=== PATIENT | female | born 2005 | race Hispanic/Latino ===

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

== ENCOUNTER 2025-02-18 23:55 | Emergency (ER) | payer SELFPAY ==
[~2025-02-18] VITALS: Ht 157.5 cm; Wt 56.7 kg
[~2025-02-18 23:55] MED LIST changes: +PRED20TA3 PO
--- NOTE | 2025-02-18 23:58 | NUR ---
UA CUP PROVIDED
--- NOTE | 2025-02-19 00:02 | NUR ---
PT CARE ASSUMED AT THIS TIME
[2025-02-19] MEDS: FAMOTIDINE 20MG VIAL IV ONE (00:21)
--- NOTE | 2025-02-19 01:26 | ERN ---
General Chief Complaint: Allergic Reaction Stated Complaint: RASH/ HIVES Time Seen by MD: 23:57 Source: patient History of Present Illness Initial Comments 19-year-old female who noticed some itching on her right antecubital fossa and she scratched it a little bit and then a short time later noted that she ended up with a hives reaction over her entire body. She is not allergic to any medications that she knows of. She has not started any medications she has not changed her perfumes or laundry detergent or anything in her environment. She has no new pets. She has no difficulty breathing no nausea or vomiting. Timing/Duration: 4-6 hours Allergies: Coded Allergies: No Known Allergies (Unverified Allergy, Unknown, 05/24/19) Home Meds Active Scripts Prednisone (Prednisone) 20 Mg Tablet, 1 TAB PO AD for 6 Days, #14 TAB 0 Refills TAKE 1 TAB BY MOUTH THREE TIMES PER DAY X3 DAYS, THEN TAKE 1 TAB BY MOUTH TWICE A DAY X2 DAYS, THEN TAKE 1 TAB BY MOUTH ONCE A DAY X1 DAY. Prov:ÁNGEL GUADARRAMA MD 11/05/24 Ondansetron (Ondansetron Odt) 4 Mg Tab.rapdis, 1 TAB PO Q6HPRN PRN for nausea/vomiting for 3 Days, #9 TAB 0 Refills Prov:KT GRACIA DO 11/03/24 Benzonatate (Tessalon Perles) 100 Mg Cap, 1 CAP PO TID for cough for 10 Days, #30 CAP 0 Refills Prov:KT GRACIA DO 11/03/24 Azithromycin (Azithromycin) 250 Mg Tablet, 1 TAB PO AD for 5 Days, #6 TAB 0 Refills 2 the first day followed by 1 for days 2-5 Prov:KT GRACIA DO 11/03/24 Cephalexin (Cephalexin) 500 Mg Capsule, 500 MG PO BID for 5 Days, #10 CAP Prov:JOANNA AMES MD 03/24/24 Mefenamic Acid (Mefenamic Acid) 250 Mg Capsule, 250 MG PO AD for 7 Days, #15 CAP Prov:JOANNA AMES MD 03/24/24 Famotidine (Pepcid) 40 Mg Tablet, 40 MG PO DAILYDINNER for 10 Days, #10 TAB Prov:ANASTASIA CABRERA 09/12/23 Naproxen (Naproxen) 500 Mg Tablet, 500 MG PO BID for 5 Days, #10 TAB Prov:ANASTASIA CABRERA HITESH 09/12/23 Ondansetron HCl (Ondansetron HCl) 4 Mg Tablet, 4 MG PO TID for 3 Days, #9 TAB Prov:ANASTASIA CABRERA HITESH 09/12/23 Cephalexin (Cephalexin) 500 Mg Capsule, 500 MG PO TID for 10 Days, #30 CAP Prov:ANASTASIA CABRERA HITESH 09/12/23 Past Medical History Past Medical History: Asthma, Pneumonia Past Surgical History: Other Surgical History Other: LEG SURGERY Female( History) LMP: Feb 12, 2025 : 1 Para: 0 Aborts: 1 ROS Dictation Review of systems negative beyond what is in the HPI and the chief complaint. Physical Exam General Appearance: (+) mild distress Orientation: (+) alert, (+) oriented x 3 Head/Face Trauma: No Eye: bilateral eye normal inspection, bilateral eye PERRL, bilateral eye EOMI Respiratory: (+) chest non-tender, (+) lungs clear, (+) well ventilated Heart: (+) regular Skin Comment Patient has hives over her entire body all four extremities abdomen chest face. MDM Patient does not have any symptoms of anaphylaxis. I will treat this as a simple allergic reaction. Patient's rash has receded with Pepcid Benadryl and saw you [facility]. ED Course Orders Procedure Category Date Status Time Diphenhydramine Hcl PHA 02/19/25 Complete (Benadryl Inj) 00:30 Famotidine 20mg Vial PHA 02/19/25 Complete (Pepcid 20mg Vial) 00:30 Methylprednisolone PHA 02/19/25 Complete Succ 125mg (Solu-Medr 00:30 Current Medications Medications (Trade) Dose Ordered Sig/Idris Route PRN Reason Start Time Stop Time Status Last Admin Dose Admin Diphenhydramine HCl (BENAdryl INJ) 50 mg ONCE ONCE IV 02/19/25 00:30 02/19/25 00:31 DC 02/19/25 00:21 Famotidine (Pepcid 20mg Vial) 20 mg ONCE ONCE IV 02/19/25 00:30 02/19/25 00:31 DC 02/19/25 00:21 Methylprednisolone Sodium Succinate (Solu-medROL 125MG) 125 mg ONCE ONCE IVP 02/19/25 00:30 02/19/25 00:31 DC 02/19/25 00:20 Vital Signs Date Time Temp Pulse Resp B/P (MAP) Pulse Ox O2 Delivery O2 Flow Rate FiO2 02/19/25 01:10 76 15 104/71 98 Room Air* 0 21 02/19/25 00:15 98.6 110 19 120/70 98 Room Air* 0 21 02/18/25 23:56 97.7 111 20 112/65 99 Room Air DX & DISP Disposition: Discharge Departure Impression: Primary Impression: Hives Condition: Stable Additional Instructions: You have had an allergic reaction to something in her environment. With steroids the reaction has been quelled. Stress can cause this type of rash although generally it is something in the environment that creates it. Please return if you have difficulty breathing or start having nausea vomiting and diarrhea as these are signs of a stronger allergic reaction. Referrals: CHAPARRO WILLIAMSON MD (PCP) LUCIANA ARIAS MD Feb 19, 2025 01:26
[2025-02-19 03:09] VITALS: BP 105/66; PULSE 75; RESP 15; TEMP 98.7; O2SAT 99
== END 2025-02-19 03:27 | disposition home or self-care (01) ==
LOC: EDH 23:55
DX: L50.9 Urticaria, unspecified (principal); J45.909 Unspecified asthma, uncomplicated; Z79.899 Other long term (current) drug therapy
CPT/HCPCS: 99285; 96374; 96375; J2919; J1200; J3490

== ENCOUNTER 2025-03-13 23:49 | Emergency (ER) | payer SELFPAY ==
[~2025-03-13] VITALS: Ht 157.5 cm; Wt 54.0 kg
[2025-03-14 00:11] LABS: RAPID GROUP A STREP negative (NEGATIVE)
[2025-03-14 00:20] LABS: SARS-CoV-2, RNA, NAAT NEGATIVE SARS CoV-2 (NEGATIVE)
[2025-03-14 00:21] LABS: INFLUENZA TYPE A Negative For Type A (NEGATIVE); INFLUENZA TYPE B Negative For Type B (NEGATIVE)
[2025-03-14] MEDS ORDERED: SODI50DR NS (00:35)
[2025-03-14] MEDS ORDERED: LORA10TA7 PO (00:35)
[2025-03-14] MEDS ORDERED: AMOX1TAB16 PO (00:35)
--- NOTE | 2025-03-14 00:35 | ERN ---
General Chief Complaint: Cough Stated Complaint: C/O N X V ,SORE THROAT, STUFFY NOSE, COUGH Time Seen by MD: 23:51 Source: patient History of Present Illness Initial Comments This is a 19-year-old female coming in with URI symptoms. Per patient this URI symptoms started yesterday. She states that she has has been exposed to COVID. Allergies: Coded Allergies: No Known Allergies (Unverified Allergy, Unknown, 05/24/19) Home Meds Active Scripts Prednisone (Prednisone) 20 Mg Tablet, 1 TAB PO AD for 6 Days, #14 TAB 0 Refills TAKE 1 TAB BY MOUTH THREE TIMES PER DAY X3 DAYS, THEN TAKE 1 TAB BY MOUTH TWICE A DAY X2 DAYS, THEN TAKE 1 TAB BY MOUTH ONCE A DAY X1 DAY. Prov:ÁNGEL GUADARRAMA MD 11/05/24 Ondansetron (Ondansetron Odt) 4 Mg Tab.rapdis, 1 TAB PO Q6HPRN PRN for nausea/vomiting for 3 Days, #9 TAB 0 Refills Prov:KT GRACIA DO 11/03/24 Benzonatate (Tessalon Perles) 100 Mg Cap, 1 CAP PO TID for cough for 10 Days, #30 CAP 0 Refills Prov:KT GRACIA DO 11/03/24 Azithromycin (Azithromycin) 250 Mg Tablet, 1 TAB PO AD for 5 Days, #6 TAB 0 Refills 2 the first day followed by 1 for days 2-5 Prov:KT GRACIA DO 11/03/24 Cephalexin (Cephalexin) 500 Mg Capsule, 500 MG PO BID for 5 Days, #10 CAP Prov:JOANNA AMES MD 03/24/24 Mefenamic Acid (Mefenamic Acid) 250 Mg Capsule, 250 MG PO AD for 7 Days, #15 CAP Prov:JOANNA AMES MD 03/24/24 Famotidine (Pepcid) 40 Mg Tablet, 40 MG PO DAILYDINNER for 10 Days, #10 TAB Prov:ANASTASIA CABRERA 09/12/23 Naproxen (Naproxen) 500 Mg Tablet, 500 MG PO BID for 5 Days, #10 TAB Prov:ANASTASIA CABRERA 09/12/23 Ondansetron HCl (Ondansetron HCl) 4 Mg Tablet, 4 MG PO TID for 3 Days, #9 TAB Prov:ANDERSANASTASIA GOMEZ HITESH 09/12/23 Cephalexin (Cephalexin) 500 Mg Capsule, 500 MG PO TID for 10 Days, #30 CAP Prov:ANASTASIA CABRERA HITESH 09/12/23 Past Medical History Past Medical History: Asthma Past Surgical History: None Surgical History Other: LEG SURGERY Female( History) LMP: Feb 10, 2025 : 1 Para: 0 Aborts: 1 ROS Dictation CONSTITUTIONAL: No chills, no fever, no weakness, no diaphoresis, no malaise. HEAD/FACE: No signs of trauma. EENT: No eye pain, no blurred vision, no tearing, no double vision, no ear pain, no ear discharge, no nose pain, nasal congestion, no throat pain, no throat swelling, no mouth pain. RESPIRATORY: cough, no orthopnea, no SOB, no stridor, no wheezing. CARDIOVASCULAR: No chest pain, no edema, no palpitations, no syncope. GASTROINTESTINAL/ABDOMINAL: No abdominal pain, no constipation, no diarrhea, no nausea, no vomiting. GENITOURINARY: No abnormal discharge, no dysuria, no frequent urination, no hematuria. No complaints of pain in the genitals. MUSCULOSKELETAL: No back pain, no gout, no joint pain, no joint swelling, no muscle pain, no muscle stiffness, no neck pain. INTEGUMENTARY: No change in color, no change in hair/nails, no dryness, no lesion, no lumps, no rash. NEUROLOGICAL/PSYCH: No anxiety, not depressed, no emotional problem, no headache, no numbness, no pre-existing deficit, no history of seizures, no tremors, no weakness. HEMATOLOGIC/LYMPHATIC: Not anemic, no history of blood clots, no apparent bleeding, no bruising, glands not swollen. All Systems Negative, Except as Noted. Physical Exam Physical Exam Dictation VITAL SIGNS: Reviewed. GENERAL APPEARANCE: Alert, oriented x3, no acute distress, obese. HEAD AND FACE: Non-traumatic. EYES: PERRL, pink conjunctivas, eyelid no trauma, anterior chamber clear. EARS: Pinnas intact and no signs of trauma or erythema. Ear canals clear and no discharge. TMs erythema. NOSE: , no bleeding. Nasal turbinate swelling with rhinorrhea OROPHARYNX: Mouth normal, teeth no caries, tongue pink. Pharynx erythema. Tonsils no exudates, no abscesses noted. Mucous membrane moist. NECK: Supple, non-tender, no thyromegaly, no masses, no JVD, no bruits. BREAST: Deferred. CHEST: No tenderness, no crepitus, no paradoxical movement, no retractions. LUNGS: Clear, well-ventilated, symmetric, no rales, no wheezing, no rhonchi, no stridor, good breath sounds bilaterally. HEART: Regular rate, regular rhythm, no murmur, no gallops. VASCULAR: No peripheral edema. ABDOMEN: Soft, positive bowel sounds, nondistended, no guarding, nontender, no rebound, no masses no hepatomegaly, no splenomegaly, no Darling's sign, no hernias. RECTAL: Deferred. GENITAL: Deferred. NEUROLOGICAL: Normal speech, gross motor function intact, gross sensory function intact. MUSCULOSKELETAL: Neck nontender, full range of motion, back nontender, full range of motion. EXTREMITIES: Nontender, full range of motion. SKIN: Color pink, dry, no turgor, no rash, no lacerations, no abrasions, no contusions. LYMPHATICS: Deferred. Results Laboratory and Microbiology Lab and Micro Result Laboratory Tests Test 03/13/25 23:52 Influenza Type A Antigen Negative For Type A Influenza Type B Antigen Negative For Type B SARS-CoV-2, RNA, NAAT NEGATIVE SARS CoV-2 Group A Streptococcus Rapid negative (NEGATIVE) Labs Reviewed?: Yes MDM MDM: Differential diagnosis: URI, COVID, flu, Rationale: Tests considered and ordered secondary to shared decision making include: Previous outside records reviewed: Old ER visits. Risk of complication and/or morbidity or mortality of patient management: None Medications-Per medication reconciliation Need for hospitalization: Patient does not meet criteria for hospitalization. Need for emergency major/minor surgery: No Patient is a 19-year-old female coming in complaining of URI symptoms. On Physical exam patient has rhinorrhea with the nasal turbinate swelling as well as oropharyngeal erythema. Patient will be discharged with a diagnosis of URI with sinusitis ED Course Orders Procedure Category Date Status Time Covid Rna Naat LAB 03/13/25 Complete 23:54 Influenza Type A & B, LAB 03/13/25 Complete Rapid 23:54 Rapid (Group A Strep) LAB 03/13/25 Complete 23:54 Dexamethasone 4mg/Ml PHA 03/14/25 Logged 1ml Vial (Dexametha 00:30 Vital Signs Date Time Temp Pulse Resp B/P (MAP) Pulse Ox O2 Delivery O2 Flow Rate FiO2 03/13/25 23:50 100.0 119 20 125/72 97 Room Air DX & DISP Disposition: Discharge Departure Impression: Primary Impression: Acute viral syndrome Additional Impression: Sinusitis Condition: Stable Scripts Loratadine (Loratadine) 10 Mg Tablet 1 TAB PO DAILY for allergy symptoms for 30 Days, #30 TAB 0 Refills Prov: WALE HIDALGO MD 03/14/25 Sodium Chloride ([place] Saline) 0.65 % Drops 2 DROP NS QID, #50 ML 0 Refills Prov: WALE HIDALGO MD 03/14/25 Amoxicillin/Potassium Clav (Amox Tr-K Clv 875-125 mg Tab) 875 Mg-125 Mg Tablet 1 TAB PO BID for 10 Days, #20 TAB 0 Refills Prov: WALE HIDALGO MD 03/14/25 Additional Instructions: FOLLOW-UP WITH PRIMARY CARE PROVIDER IN 1 TO 2 DAYS. TAKE MEDICATIONS DIRECTED HERE IN THE EMERGENCY ROOM. OKAY TO CONTINUE HOME MEDICATIONS UNLESS OTHERWISE DISCUSSED DURING YOUR VISIT IN THE EMERGENCY ROOM TODAY. RETURN TO YOUR NEAREST EMERGENCY ROOM IF SYMPTOMS WORSEN OR IF THERE IS NO IMPROVEMENT. CALL 911 IF YOU NEED IMMEDIATE ASSISTANCE. TAKE TYLENOL [id number] NEEDED AND IF NO CONTRAINDICATIONS ARE PRESENT. INCREASE ORAL HYDRATION. A WOUND CULTURE OR URINE CULTURE WAS ORDERED HERE IN THE EMERGENCY ROOM DEPARTMENT PLEASE FOLLOW-UP WITH PRIMARY CARE PROVIDER AND ADVISE THEM TO GET REPORTS FROM OUR FACILITY. IF YOU HAD ANY JESSICA WRAP/SPLINTS THAT WERE APPLIED HERE, PLEASE DO NOT REMOVE THEM UNTIL YOU SEE YOUR PRIMARY CARE OR SPECIALTY. Referrals: Referrals: CHAPARRO WILLIAMSON MD (PCP) Time of Disposition: 00:34 WALE HIDALGO MD Mar 14, 2025 00:35
[2025-03-14 01:30] VITALS: BP 122/68; PULSE 94; RESP 16; TEMP 99.2; O2SAT 99
== END 2025-03-14 01:31 | disposition home or self-care (01) ==
LOC: EDH 23:49
DX: B34.9 Viral infection, unspecified (principal); J32.9 Chronic sinusitis, unspecified; J45.909 Unspecified asthma, uncomplicated; Z20.822 Contact with and (suspected) exposure to COVID-19
CPT/HCPCS: 99283; 87635; 87880; 87804 ×2; 96372; J1100